=== PATIENT | female | born 1990 | race Caucasian/White ===

== ENCOUNTER → 2016-02-22 | Outpatient (CLI) | payer BC ==
[~2016-02-22] MED LIST: ATEN50TA8 PO; BCPILLS PO; FLUO20CA34 PO; MULT-506 PO; OXYC-57 PO; PRLSR20 PO
[2016-02-22 17:48] LABS: BLOOD UREA NITROGEN 13 mg/dl (7-18); BUN/CREATININE RATIO 13.2 (10-20); CALCIUM 8.7 mg/dl (8.5-10.1); CARBON DIOXIDE 26 mmol/L (21-32); CHLORIDE 105 mmol/L (98-107); GLUCOSE 85 mg/dl (70-99); POTASSIUM 3.9 mmol/L (3.5-5.1); SODIUM 140 mmol/L (136-145)
== END | disposition home or self-care (01) ==
LOC: C.LAB1850 17:12
PROVIDERS: ATTEND Nurse Practitioner
DX: I10 Essential (primary) hypertension (principal)

== ENCOUNTER → 2017-01-19 | Outpatient (CLI) | payer BC ==
[~2017-01-19] MED LIST changes: -OXYC-57 PO
[2017-01-19 14:41] LABS: HEMATOCRIT 38.7 % (37-47); MEAN CELL VOLUME 88.2 fL (80-100); MEAN CORPUSCULAR HEMOGLOBIN 30.3 pg (25-34); MEAN CORPUSCULAR HGB CONC 34.4 g/dl (32-36); MEAN PLATELET VOLUME 10.5 fL (7.4-10.4); PLATELET COUNT 308 K/uL (130-400); RED BLOOD COUNT 4.39 M/uL (4.2-5.4); WHITE BLOOD COUNT 10.77 K/uL (4.8-10.8)
== END | disposition home or self-care (01) ==
LOC: C.LAB1850 12:46
PROVIDERS: ATTEND Obstetrics & Gynecology
DX: R53.83 Other fatigue (principal)

== ENCOUNTER → 2017-01-26 | Outpatient (CLI) | payer BC | END | disposition home or self-care (01) | LOC: C.LAB1850 08:09 | PROVIDERS: ATTEND Nurse Practitioner | DX: E03.9 Hypothyroidism, unspecified (principal) ==

== ENCOUNTER 2018-12-24 17:15 | Inpatient (IN) ==
[~2018-12-24 17:15] MED LIST changes: -ATEN50TA8 PO; -BCPILLS PO; +CEFAZOLIN 2000MG 2,000 MG/15 ML SYR IV SCH; +CITRIC ACID/SODIUM CITRATE 15 ML UDC PO SCH; -FLUO20CA34 PO; -MULT-506 PO; -PRLSR20 PO
[2018-12-24 17:46] LABS: Basophils # (auto) 0.02 K/uL (0-0.2); Basophils % (auto) 0.2 %; Eosinophils # (auto) 0.13 K/uL (0-0.5); Eosinophils % (auto) 1.3 %; Hematocrit (blood only) 36.6 % (37-47); Hemoglobin 13.1 g/dL (12.0-16.0); Immature Granulocytes # (auto) 0.02 K/uL (0.00-0.02); Immature Granulocytes % (auto) 0.2 %; Lymphocytes % (auto) 19.4 %; Mean Corpuscular Hemoglobin 31.7 pg (25-34); Mean Corpuscular Volume 88.6 fL (80-100); Mean Platelet Volume 10.6 fL (7.4-10.4); Monocytes # (auto) 0.89 K/uL (0.11-0.59); Monocytes % (auto) 9.1 %; Neutrophils # (auto) 6.85 K/uL (1.4-6.5); Neutrophils % (auto) 69.8 %; Platelet Count 215 K/uL (130-400); RDW Coefficient of Variation 12.8 % (11.5-14.5); Red Blood Count 4.13 M/uL (4.2-5.4); White Blood Count 9.81 K/uL (4.8-10.8)
[2018-12-24 18:03] LABS: Alanine Aminotransferase 14 U/L (12-78); Albumin Level 2.8 gm/dl (3.4-5.0); Aspartate Aminotransferase 14 U/L (15-37); Bilirubin Direct < 0.1 mg/dl (0-0.2); Est GFR (African American) 133.4; Est GFR (Non-African American) 115.1
[2018-12-24 18:06] LABS: Alkaline Phosphatase 113 U/L (45-117); Bilirubin,Total 0.3 mg/dl (0.2-1); Total Protein 7.3 gm/dl (6.4-8.2)
[2018-12-24 18:07] LABS: Mean Corpuscular Hgb Conc 35.8 g/dL (32-36)
[2018-12-24 18:09] LABS: INR 0.9 (0.9-1.1); Partial Thromboplastin Time 26.9 Seconds (21.0-31.0); Prothrombin Time 9.7 Seconds (9.0-12.0)
[2018-12-24 18:31] LABS: Creatinine Urine Random 17.6 mg/dl; Total Protein Urine Random < 5.0 mg/dl (0-11.9)
[2018-12-24] MEDS ORDERED: LACTATED RINGER'S 1,000 ML IV PRN (18:45)
[2018-12-24] MEDS ORDERED: OXYTOCIN 30 UNITS/500 ML BAG IV PRN (18:45)
--- NOTE | 2018-12-24 18:53 | History & Physical Report ---
Date of Service December 24, 2018 Assessment & Plan (1) Previous delivery affecting , antepartum: (2) Chronic hypertension in obstetric context in third trimester: - heart rate tracing was category 1 -Repeat superimposed preeclamptic labs today within normal limits -Patient with persistent diastolic blood pressures greater than 100 -Discussed the case with maternal- medicine in [place] -Considering the advanced gestational age and the elevated blood pressures, recommend proceeding with delivery. -Patient had been scheduled for repeat section on 31 December -We will proceed with repeat section. -Patient also requesting bilateral tubal ligation -Patient understands that this is an irreversible procedure and wishes to proceed -Permit has been signed -Peds and anesthesia have been notified History of Present Illness Chief Complaint: Elevated blood pressure Primary Care Provider: ALEJANDRA Bernal The patient is a 28-year-old 2 para 1, EDC of 10 January by first trimester ultrasound, at 37+ weeks gestational age, who was admitted with exacerbation of chronic hypertension in . The patient carries a diagnosis of chronic hypertension diagnosed at the time of her last delivery 3 years ago. The patient has been maintained on metoprolol 75 mg twice daily throughout this . She has been followed with chronic hypertensive protocol. She has had reassuring ultrasounds for growth, and testing. Over the last 3 weeks the patient has had an acute rise in her blood pressure with diastolics over 100. Superimposed preeclamptic labs have been within normal limits. Patient was seen in the office today and had persistent diastolic blood pressures greater than 100 and was sent to labor and delivery evaluation. Laboratory values for this show blood type of O+, antibody negative, rubella immune, hepatitis B negative, she had a normal 1 hour Glucola x2, she declined all genetic screening, and she had a negative third trimester beta strep culture. Allergies Allergy/AdvReac Type Severity Reaction Status Date / Time No Known Allergies Allergy Verified 12/24/18 15:40 Home Medications Home Medications Medication Instructions Recorded Confirmed Type cholecalciferol (vitamin D3) 2,000 unit PO DAILY 05/24/18 12/24/18 History [Vitamin D3] levothyroxine 75 mcg tablet 75 mcg PO DAILY #30 tab 08/31/18 12/24/18 History aspirin 81 mg tablet,delayed 81 mg PO DAILY 09/18/18 12/24/18 History release metoprolol tartrate 50 mg tablet 75 mg PO BID tab 10/14/18 12/24/18 History vit-iron fum-folic ac 1 tab PO DAILY 12/11/18 12/24/18 History [ Vitamin] Patient History Medical History Depression (Acute) Essential hypertension (Acute) Laryngopharyngeal reflux (Acute) Subclinical hypothyroidism (Acute) Vitamin D deficiency (Acute) Chronic hypertension in obstetric context in third trimester with 38 completed weeks gestation (Resolved) uterine contractions, antepartum (Resolved) Surgical History History of (Inactive) History of laparoscopic cholecystectomy History of tooth extraction Family History Mother Hyperlipidemia Anxiety Father Hypertension Hyperlipidemia Sister Diabetes Uncle Hyperthyroidism Social History Preferred Language: Korean Communication Ability: Effective Refrigeration Specialist Required: No Beliefs That Will Affect Care: None marital status: Current Living Situation: Spouse current occupational status: employed Other Information That Helps Us Care for You: No Feels Safe at Home: Yes Safety Concerns: Feels Safe At This Time Smoking Status: Never smoker Second Hand Exposure: No ; Hx Alcohol Use: No Hx Substance Use: No Dental Care, Regularly: Yes Physical Activity Frequency: Daily Seatbelt Use: always Sunscreen Use: Yes Physical Exam Constitutional: WD/WN, vitals as above Respiratory: Auscultation: lungs clear to auscultation bilaterally Cardiovascular: RRR, no murmur, no edema Extremities: no calf tenderness Gastrointestinal (Abdomen): Gravid, vertex, positive heart tones, estimated weight of 6-1/2 pounds Genitourinary: Cervical examination deferred Results & Data Vital Signs (Past 12 Hours) Vital Signs Temp Pulse Resp BP 12/24/18 18:39 98.1 F 12/24/18 18:30 77 157/99 H 12/24/18 18:20 68 158/98 H 12/24/18 18:10 76 157/97 H 12/24/18 18:01 77 160/102 H 12/24/18 17:41 77 163/99 H 12/24/18 17:31 81 160/107 H 12/24/18 17:21 78 166/106 H 12/24/18 17:20 98.1 F 20 Code Status & VTE Plan VTE Prophylaxis Plan VTE Prophylaxis will be ordered: Yes
--- NOTE | 2018-12-24 19:02 | Anesthesiology Consultation ---
Date of Service December 24, 2018 Assessment & Plan (1) Encounter for pre-operative examination: Chart Review Chart Review: Acceptable Risk for Surgery and Patient NOT seen in Pre Admission Testing Consults Requested none ASA [id number] Proposed Anesthesia Anesthesia Type: Spinal Risk / Benefits Reviewed With: PT / POA / Parent / Guardian, Accepts Plan and Informed Consent Obtained History Surgery Operation Date: 12/24/18 18:50 Proposed Procedures p Section in LD - Victor M Cottrell Jr, MD, FACOG Height/Weight Height: 5 ft 6 in Weight: 97.427 kg Allergies Allergy/AdvReac Type Severity Reaction Status Date / Time No Known Allergies Allergy Verified 12/24/18 15:40 Medications Home Medications Medication Instructions Recorded Confirmed Last Taken cholecalciferol (vitamin D3) 2,000 unit PO DAILY 05/24/18 12/24/18 12/11/18 06:4 5 [Vitamin D3] levothyroxine 75 mcg tablet 75 mcg PO DAILY #30 tab 08/31/18 12/24/18 12/11/18 06:00 aspirin 81 mg tablet,delayed 81 mg PO DAILY 09/18/18 12/24/18 12/11/18 06:45 release metoprolol tartrate 50 mg tablet 75 mg PO BID tab 10/14/18 12/24/18 12/11/18 06:45 vit-iron fum-folic ac 1 tab PO DAILY 12/11/18 12/24/18 12/10/18 21:00 [ Vitamin] Active Medications Generic Name Dose Route Start Last Admin Trade Name Freq PRN Reason Stop Dose Admin Lactated Ringer's 1,000 mls @ 125 mls/hr 12/24/18 18:45 12/24/18 19:27 Lr IV 12/26/18 18:44 999 mls/hr .Q8H PRN Administration L&D Protocol Protocol NPO Date Last Intake of Fluids: 12/24/18 Time Last Intake of Fluids: 17:00 Date Last Intake of Solids: 12/24/18 Time Last Intake of Solids: 13:15 Past Medical History Medical History Depression (Acute) Essential hypertension (Acute) Laryngopharyngeal reflux (Acute) Subclinical hypothyroidism (Acute) Vitamin D deficiency (Acute) Chronic hypertension in obstetric context in third trimester with 38 completed weeks gestation (Resolved) uterine contractions, antepartum (Resolved) Exercise / Class Metabolic Activity II 4-5 Yardwork/Stairs/Walk up hill Negative for chest pain or shortness of breath. Past Family History Family History Mother Hyperlipidemia Anxiety Father Hypertension Hyperlipidemia Sister Diabetes Uncle Hyperthyroidism Past Surgical History Surgical History History of (Inactive) History of laparoscopic cholecystectomy History of tooth extraction Past Anesthesia History No Hx of Anesthesia Complications History of PONV No Hx of PONV and No Hx of Motion Sickness Social History Smoking Status: Never smoker Hx Alcohol Use: No Hx Substance Use: No substance use type: does not use Review of Systems Patient denies history of abnormal bleeding or bleeding disorder. Patient denies active use of anticoagulants other than low dose aspirin. Patient denies numbness, tingling or weakness in lower extremities. Physical Exam Vital Signs Last Vital Signs Temp 36.9 C 12/24/18 19:05 Pulse 80 12/24/18 19:08 Resp 16 12/24/18 19:05 BP 167/95 H 12/24/18 19:08 Constitutional not obese (Gravid uterus) ENMT Mouth: no TMJ abnormality and oral opening not small Thyromental Distance: > or= 3.5 Finger Breadths Mallampati Class: II Neck normal visual inspection; neck extension not limited Respiratory normal respiratory effort Auscultation: lungs clear to auscultation bilaterally Cardiovascular Rate/Rhythm: regular rate and regular rhythm Heart Sounds: no murmur Neurologic moves all extremities Motor/Sensory: no sensory deficit Psychiatric Orientation: alert and oriented x 3 Testing Laboratory Results 12/24/18 17:29 12/24/18 17: PT 9.7 Seconds (9.0-12.0) 12/24/18 17: INR 0.9 (0.9-1.1) 12/24/18 17: APTT 26.9 Seconds (21.0-31.0) 12/24/18 17:29
[2018-12-24] MEDS ORDERED: MoRPHine SULFATE PF 1 MG/ML 10 ML AMP/VIAL ONE (19:48)
[2018-12-24] MEDS ORDERED: fentaNYL citrate 100 MCG/2 ML VIAL ONE (19:49)
--- NOTE | 2018-12-24 21:02 | Post Operative Brief Note ---
PG Immediate Post Op with CF Date of Surgery December 24, 2018 Pre & Post Diagnosis Operation Date: 12/24/18 18:50 <No data on this case meets the specified criteria> Procedure Operation Date: 12/24/18 18:50 <No data on this case meets the specified criteria> Surgeon Victor M Cottrell Jr, MD, FACOG
[2018-12-24] MEDS ORDERED: SODIUM CHLORIDE 0.9% INJ 10 ML VIAL ONE (21:04)
[2018-12-24] MEDS ORDERED: ONDANSETRON INJ 2 MG/ML 2 ML VIAL ONE (21:04)
[2018-12-24] MEDS ORDERED: OXYTOCIN 10 UNITS/ML VIAL ONE (21:04)
--- NOTE | 2018-12-24 21:08 | Post Operative Brief Note ---
PG Immediate Post Op with CF Date of Surgery December 24, 2018 Pre & Post Diagnosis Operation Date: 12/24/18 18:50 <No data on this case meets the specified criteria> Procedure Operation Date: 12/24/18 18:50 <No data on this case meets the specified criteria> Surgeon Victor M Cottrell Jr, MD, FACOG Specimens Specimen Description: Placenta Exam. R portion fallopian tube. L portion fallopian tube. Cord blood. arterial and venous cord blood gases. Drains Ku Catheter (placed after spinal, draining clear yellow urine.)
[2018-12-24 21:10] LABS: Base Excess Cord Arterial Bld -2.1 mEq/L (-9-1.8); CO2 Cord Arterial Blood 60 mmHg (39.1-73.5); HCO3 Cord Arterial Blood 26 mmol/L (19.7-28.5); PO2 Cord Arterial Blood 11.4 % (4.1-31.7); pH Cord Arterial Blood 7.26 (7.1-7.38)
--- NOTE | 2018-12-24 21:10 | Post Operative Brief Note ---
PG Immediate Post Op with CF Date of Surgery December 24, 2018 Pre & Post Diagnosis Operation Date: 12/24/18 18:50 Pre-Op Diagnosis: 1. complicated 37weeks 2. worsening chronic HTN 3.Previous section 4. Desires Permanent sterilization Post-Op Diagnosis: 1. same 2. Double Footling Breech I identified the patient and participated in the time-out.: Yes Procedure Operation Date: 12/24/18 18:50 1) Repeat lower uterine transverse 2). Bilateral Tubal Ligation Surgeon Victor M Cottrell Jr, MD, FACOG Venue Manager Elda Estimated Blood Loss 800 Findings See Below (viable male, Apgars 3/7/7, weight 5lbs 9 ozs, gasses pending, bilaterla tubal ligation) Specimens Specimen Description: Placenta Exam. R portion fallopian tube. L portion fallopian tube. Cord blood. arterial and venous cord blood gases. Drains Ku Catheter (placed after spinal, draining clear yellow urine.)
[2018-12-24 21:13] LABS: Oxygen Sat Cord Arterial Blood < 60.0 % (<60)
[2018-12-24 21:14] LABS: Base Excess Cord Venous Blood -2.1 mEq/L (-7.7-1.9); Cord Venous Blood HCO3 24 mmol/L (18.4-26.8); Cord Venous Blood PCO2 43 mmHg (30.4-57.2); Cord Venous Blood PO2 27 mmHg (14.1-43.3); Cord Venous Blood pH 7.35 (7.20-7.44); O2 Saturation Cord Venous Bld 62.3 % (<68)
[2018-12-24] MEDS ORDERED: NALBUPHINE HCL INJ 10 MG/ML AMP IV PRN (21:18)
[2018-12-24] MEDS ORDERED: NALOXONE HCL 0.08 MG in SYRINGE 1.8 ML IV PRN (21:18)
[2018-12-24] MEDS ORDERED: DiphenhydrAMINE HCL 50 MG/ML VIAL IV PRN ×2 (21:18→21:25)
[2018-12-24] MEDS ORDERED: ePHEDrine sulfate 50 MG/ML AMP IV PRN (21:18)
[2018-12-24] MEDS ORDERED: NALOXONE HCL 1 MG in SODIUM CHLORIDE 0.9% 1000ML 1,000 ML IV PRN (21:18)
[2018-12-24] MEDS ORDERED: ACETAMINOPHEN 1000 MG/100 ML IV IV PRN (21:18)
[2018-12-24] MEDS ORDERED: ONDANSETRON INJ 2 MG/ML 2 ML VIAL IV PRN (21:18)
[2018-12-24] MEDS ORDERED: NALOXONE HCL 0.4 MG/1 ML VIAL/CARP IV PRN (21:18)
[2018-12-24] MEDS ORDERED: MoRPHine SULFATE PF 1 MG/ML 10 ML AMP/VIAL INT SPINAL ONE (21:18)
[2018-12-24] MEDS ORDERED: LACTATED RINGER'S 500 ML IV PRN (21:18)
[2018-12-24] MEDS ORDERED: HYDROmorphone INJ 0.5 MG/0.5 ML SYR IV PRN (21:18)
[2018-12-24] MEDS ORDERED: BENZOCAINE 20% AER SPR 82.5 GM CAN EXT PRN (21:25)
[2018-12-24] MEDS ORDERED: HYDROCORTISONE ACETATE 25 MG SUPP PR PRN (21:25)
[2018-12-24] MEDS ORDERED: DIPHTHERIA/TETANUS/PERTUSSIS 0.5 ML SYR/VIAL IM ONE (21:25)
[2018-12-24] MEDS ORDERED: SUPERCREAM 0.870% 15 GM JAR EXT PRN (21:25)
[2018-12-24] MEDS ORDERED: LACTATED RINGER'S 1,000 ML IV SCH (21:25)
--- NOTE | 2018-12-24 21:29 | Operative Report ---
DATE OF OPERATION: 12/24/2018 PREOPERATIVE DIAGNOSES: 1. Complicated at 37 weeks gestational age. 2. Worsening chronic hypertension of . 3. Previous section. 4. Desired permanent surgical sterilization. POSTOPERATIVE DIAGNOSES: 1. Same. 2. Double footling breech presentation. PROCEDURES PERFORMED: 1. Repeat low cervical transverse section. 2. Bilateral tubal ligation. SURGEON: Victor M Cottrell MD CROSSCUTTER ROLLED GLASS: Lorene Schroeder MD ANESTHESIA: Spinal. FINDINGS: Viable male with Apgars of 3, 7 and 7 and a weight of 5 pounds 9 ounces, delivered from a double footling breech presentation. Cord gases are pending. Placenta delivered spontaneously. Normal-appearing tubes and ovaries bilaterally. Bilateral segment of fallopian tube removed for sterilization. PROCEDURE IN DETAIL: The patient was taken to the operating room and after spinal anesthesia, was placed in supine position, draped and prepped in the usual fashion. Pfannenstiel type incision through previous surgical scar was made. Underlying subcutaneous tissue was dissected down to the ventral abdominal fascia, which was nicked and opened in a horizontal manner. Preperitoneal fascia was dissected away until the peritoneal cavity was entered and opened in a vertical manner. Bladder blade was placed. Peritoneum overlying the uterus was elevated, opened in a semilunar fashion, the inferior margin of which was taken down creating the bladder flap. The uterus was entered sharply and extended in a semilunar fashion manually for clear fluid. A viable male was delivered from a double footling breech extraction. Cord was clamped and cut and the baby was passed off to pediatrics who was in attendance for the delivery. Cord gases and cord blood samples were obtained. Placenta was delivered spontaneously. The uterus was exteriorized. The uterine cavity was wiped clean of any residual blood tissue and/or clot. The uterine incision was closed with 2 layers of 4-0 Vicryl, the first a running locking stitch, the second an imbricating stitch. Hemostasis was achieved. The right fallopian tube was isolated followed to the fimbriated end, a segment of which was elevated, doubly ligated with 0 plain suture, cut and removed from the field. In a similar fashion, the left fallopian tube was isolated followed to the fimbriated end, a segment of which was elevated, doubly ligated with 0 plain suture, cut and removed from the field. Hemostasis present. The uterus was returned to the pelvic cavity. The pericolic gutters were cleared bilaterally of any blood tissue and/or clot. The pelvis was thoroughly irrigated with 1000 mL of warm saline. All pedicles were inspected for hemostasis, including the tubal pedicles which were present. The sponge and needle count was correct. The rectus muscle was plicated in the midline with a running 2-0 Vicryl stitch. The fascia was closed laterally to the midline from both sides with 0 Vicryl suture. Subcutaneous tissue was irrigated with warm saline and the skin incision was closed with a 4-0 Monocryl subcuticular suture. Sterile dressing was applied. The patient was taken to the recovery room in satisfactory condition. I attest to the content of the Intraoperative Record and any orders documented therein. Any exception s are noted below.
[2018-12-24] MEDS ORDERED: DC INTRASPINAL MORPHINE SCH (21:30)
[2018-12-24] MEDS ORDERED: SODIUM CHLORIDE 0.9% 1000ML 1,000 ML IV SCH (21:30)
[2018-12-24] MEDS ORDERED: NO NARCOTICS OR SEDATIVES SCH (21:30)
[2018-12-24] MEDS ORDERED: KETOROLAC 30 MG/ML VIAL ONE (21:45)
[2018-12-24] MEDS: OXYTOCIN 20 UNITS in LACTATED RINGER'S 1,000 ML IV SCH (21:45)
--- NOTE | 2018-12-24 23:33 | Anesthesiology Progress Note ---
Date of Service December 24, 2018 Anesthesia Post Procedure Vital Signs Vital Signs: Temp Pulse Resp BP Pulse Ox 12/24/18 23:27 77 95 12/24/18 23:22 83 94 12/24/18 23:17 83 95 12/24/18 23:16 81 140/67 12/24/18 23:12 83 94 12/24/18 23:07 85 94 12/24/18 23:02 84 94 12/24/18 22:57 84 94 12/24/18 22:52 85 93 12/24/18 22:47 76 94 12/24/18 22:46 80 123/73 12/24/18 22:45 36.8 C 16 12/24/18 22:42 77 94 12/24/18 22:37 79 94 12/24/18 22:32 81 94 12/24/18 22:27 86 94 12/24/18 22:22 78 95 12/24/18 22:17 75 93 12/24/18 22:15 76 132/65 12/24/18 22:12 76 94 12/24/18 22:07 74 95 12/24/18 22:05 81 16 137/71 12/24/18 22:02 73 95 12/24/18 21:57 75 95 12/24/18 21:55 75 18 133/67 12/24/18 21:52 72 95 12/24/18 21:47 76 94 12/24/18 21:45 79 18 131/62 12/24/18 21:43 83 93 12/24/18 21:42 79 95 12/24/18 21:37 81 98 12/24/18 21:36 78 142/68 H 12/24/18 21:35 18 12/24/18 21:32 71 98 12/24/18 21:27 70 98 12/24/18 21:25 74 18 129/85 12/24/18 21:22 77 99 12/24/18 21:17 75 99 12/24/18 21:15 37.0 C 70 18 127/81 12/24/18 19:08 80 167/95 H 12/24/18 19:05 36.9 C 16 12/24/18 18:39 36.7 C 12/24/18 18:30 77 157/99 H 12/24/18 18:22 68 158/98 H 12/24/18 18:20 68 158/98 H 12/24/18 18:10 76 157/97 H 12/24/18 18:01 77 160/102 H 12/24/18 17:41 77 163/99 H 12/24/18 17:31 81 160/107 H 12/24/18 17:21 78 166/106 H 12/24/18 17:20 36.7 C 20 Pain Intensity Bilateral Lower Abdomen: Pain Intensity: 1 Transfer of Care Handoff Completed per policy Notes Mental Status: alert / awake / arousable and participated in evaluation Nausea / Vomiting: adequately controlled Pain: adequately controlled Airway Patency, RR, SpO2: stable & adequate BP & HR: stable & adequate Hydration State: stable & adequate Neuraxial Anesthesia: was administered and sensory block is resolving Anesthetic Complications: no major complications apparent and Pt Satisfied with anesthetic care
[2018-12-25] MEDS: ACETAMINOPHEN 1000 MG/100 ML IV IV PRN ×2 (01:03→11:22)
[2018-12-25] MEDS: KETOROLAC 30 MG/ML VIAL IV PRN ×2 (06:12→14:29)
--- NOTE | 2018-12-25 06:31 | Obstetrical Progress Note ---
Date of Service <Mike Moraes DO - Last Filed: 12/25/18 06:40> December 25, 2018 Assessment & Plan <Mike Moraes DO - Last Filed: 12/25/18 06:40> (1) Previous delivery affecting , antepartum: -POD#1 -Vitals reviewed, WNL (Tmax 97.0), continue to monitor BP - GBS -, Blood Type O+ - Clinically stable. - Feels well today. Willingham catheter in place. Encourage ambulation. Encourage diet. - Pain well controlled. - Routine post care - After discharge will have [address] Cottrell. Day #:: 1 Subjective <Mike Moraes DO - Last Filed: 12/25/18 06:40> Ambulation: limited ambulation Voiding: willingham catheter in place Passing Gas:: No Diet Tolerance:: clear liquids Lochia:: Small Feeding Type:: bottle feeding ([place]) Current Pain Level(1-10): 2 (improves with analgesics) Patient is a 28 POD#1 for repeat . Patient states that she is doing well this morning and that her pain is well controlled. She has no complaints at this point in time. Constitutional: no fever and no chills Respiratory: no cough, no dyspnea and no wheezing Cardiovascular: no chest pain, no dyspnea, no dyspnea on exertion, no edema and no calf pain Breast: no breast pain Gastrointestinal: no abdominal pain, no nausea and no vomiting Genitourinary (female): no dysuria Neurologic: no headache(s) Physical Exam <DO Michael Baez Last Filed: 12/25/18 06:40> Constitutional WD/WN, vitals as above Respiratory normal respiratory effort, lungs clear to auscultation Cardiovascular Rate/Rhythm: regular rate and regular rhythm Heart Sounds: normal S1 and normal S2; no click, no gallop, no murmur and no car diac rub Extremities: + edema (+1); no calf tenderness Gastrointestinal (Abdomen) Inspection/Auscultation: abdomen normal to inspection, normal bowel sounds and + abdominal surgical incision (Dressing Clean and Dry, No Pus noted. ) Percussion/Palpation: + abdomen tender (TTP in lower quadrants b/l, appropriate) and abdomen soft; no guarding and abdomen not rigid Genitourinary OB Exam Abdomen: + fundal height Fundus: + firm; not tender and not boggy Results & Data <Mike Moraes DO - Last Filed: 12/25/18 06:40> Vital Signs (Past 12 Hours) Vital Signs Temp Pulse Pulse Resp BP BP Pulse Ox 12/25/18 05:50 18 98 12/25/18 04:51 16 98 12/25/18 04:20 36.6 C 71 16 142/82 H 98 12/25/18 03:50 16 98 12/25/18 02:51 36.6 C 67 16 128/83 97 12/25/18 02:06 18 98 12/25/18 02:05 72 18 113/77 97 12/25/18 01:50 18 97 12/25/18 00:50 84 18 126/84 98 12/25/18 00:20 71 18 146/80 H 96 12/24/18 23:50 36.6 C 74 16 137/75 94 12/24/18 23:27 77 95 12/24/18 23:22 83 94 12/24/18 23:17 83 95 12/24/18 23:16 81 140/67 12/24/18 23:12 83 94 12/24/18 23:07 85 94 12/24/18 23:02 84 94 12/24/18 22:57 84 94 12/24/18 22:52 85 93 12/24/18 22:47 76 94 12/24/18 22:46 80 123/73 12/24/18 22:45 36.8 C 16 12/24/18 22:42 77 94 12/24/18 22:37 79 94 12/24/18 22:32 81 94 12/24/18 22:27 86 94 12/24/18 22:22 78 95 12/24/18 22:17 75 93 12/24/18 22:15 36.9 C 76 18 132/65 12/24/18 22:12 76 94 12/24/18 22:07 74 95 12/24/18 22:05 81 16 137/71 12/24/18 22:02 73 95 12/24/18 21:57 75 95 12/24/18 21:55 75 18 133/67 12/24/18 21:52 72 95 12/24/18 21:47 76 94 12/24/18 21:45 79 18 131/62 12/24/18 21:43 83 93 12/24/18 21:42 79 95 12/24/18 21:37 81 98 12/24/18 21:36 78 142/68 H 12/24/18 21:35 18 12/24/18 21:32 71 98 12/24/18 21:27 70 98 12/24/18 21:25 74 18 129/85 12/24/18 21:22 77 99 12/24/18 21:17 75 99 12/24/18 21:15 37.0 C 70 18 127/81 12/24/18 19:08 80 167/95 H 12/24/18 19:05 36.9 C 16 12/24/18 18:39 36.7 C Pulse Ox 12/25/18 05:50 12/25/18 04:51 12/25/18 04:20 12/25/18 03:50 12/25/18 02:51 12/25/18 02:06 12/25/18 02:05 12/25/18 01:50 12/25/18 00:50 12/25/18 00:20 12/24/18 23:50 94 12/24/18 23:27 12/24/18 23:22 12/24/18 23:17 12/24/18 23:16 12/24/18 23:12 12/24/18 23:07 12/24/18 23:02 12/24/18 22:57 12/24/18 22:52 12/24/18 22:47 12/24/18 22:46 12/24/18 22:45 12/24/18 22:42 12/24/18 22:37 12/24/18 22:32 12/24/18 22:27 12/24/18 22:22 12/24/18 22:17 12/24/18 22:15 12/24/18 22:12 12/24/18 22:07 12/24/18 22:05 12/24/18 22:02 12/24/18 21:57 12/24/18 21:55 12/24/18 21:52 12/24/18 21:47 12/24/18 21:45 12/24/18 21:43 12/24/18 21:42 12/24/18 21:37 12/24/18 21:36 12/24/18 21:35 12/24/18 21:32 12/24/18 21:27 12/24/18 21:25 12/24/18 21:22 12/24/18 21:17 12/24/18 21:15 12/24/18 19:08 12/24/18 19:05 12/24/18 18:39 Laboratory Results Abnormal lab results 12/24/18 12/24/18 Range/Units 17:29 17:29 RBC 4.13 L (4.2-5.4) M/uL Hct 36.6 L (37-47) % MPV 10.6 H (7.4-10.4) fL Neut # (Auto) 6.85 H (1.4-6.5) K/uL [place] # (Auto) 0.89 H (0.11-0.59) K/uL AST 14 L (15-37) U/L Albumin 2.8 L (3.4-5.0) gm/dl Medications Administered Current Inpatient Medications Acetaminophen (Ofirmev) 1,000 mg IV Q8 PRN PRN Reason: Pain Stop: 12/25/18 21:18 Last Admin: 12/25/18 01:03 Dose: 1,000 mg Documented by: Benzocaine (Dermoplast Pain Relieving [place]) 1 appln EXT UD PRN PRN Reason: use on skin as needed Stop: 01/23/19 21:24 Cocaine HCl (Supercream 0.870%) 1 gm EXT UD PRN PRN Reason: hemmorrhoidal inflammation Stop: 01/07/19 21:24 Diphenhydramine HCl (Benadryl) 25 mg IV Q6H PRN PRN Reason: pruritis Stop: 12/25/18 15:18 Last Admin: 12/25/18 02:01 Dose: 25 mg Documented by: Diphenhydramine HCl (Benadryl Capsule) 25 mg PO QID PRN PRN Reason: Itching Stop: 01/24/19 15:17 Diphenhydramine HCl (Benadryl) 25 mg IV QID PRN PRN Reason: Itching Stop: 01/24/19 15:17 Ephedrine Sulfate (Ephedrine Sulfate) 10 mg IV Q5M PRN PRN Reason: Hypotension Stop: 12/25/18 15:18 Ferrous Sulfate (Feosol) 325 mg PO DAILY@08 [facility] Stop: 01/24/19 07:59 Hydrocortisone (Anusol Hc) 25 mg [place] BID PRN PRN Reason: Hemorrhoids Stop: 01/23/19 21:24 Hydromorphone HCl (Dilaudid) 0.25 mg IV Q4H PRN PRN Reason: Breakthrough Surgical Pain Stop: 12/25/18 15:18 Lactated Ringer's (Lr) 500 mls @ 999 mls/hr IV .Q31M PRN PRN Reason: Hypotension Stop: 12/25/18 15:18 Naloxone HCl 0.08 mg/ Syringe 2 mls @ 1 mls/min IV Q30M PRN; Protocol PRN Reason: Urinary Retention Stop: 12/25/18 15:18 Naloxone HCl 1 mg/ Sodium (Chloride) 1,002.5 mls @ 50 mls/hr IV .Q20H3M PRN PRN Reason: itching or nausea Stop: 12/25/18 15:18 Sodium Chloride (Nss 1000ml) 1,000 mls @ 15 mls/hr IV .Q24H [facility] Stop: 12/25/18 15:18 Lactated Ringer's (Lr) 1,000 mls @ 125 mls/hr IV .Q8H [facility] Stop: 01/23/19 21:24 Oxytocin 20 units/ Lactated (Ringer's) 1,002 mls @ 125 mls/hr IV .Q8H1M [facility] Stop: 12/25/18 13:26 Last Admin: 12/25/18 06:32 Dose: 125 mls/hr Documented by: Ibuprofen (Motrin) 600 mg PO Q4H PRN PRN Reason: Pain Stop: 01/23/19 21:24 Ketorolac Tromethamine (Toradol) 30 mg IV Q6H PRN PRN Reason: Breakthrough Surgical Pain Stop: 12/25/18 15:18 Last Admin: 12/25/18 06:12 Dose: 30 mg Documented by: Ketorolac Tromethamine (Toradol) 30 mg IV Q6H PRN PRN Reason: Pain Stop: 12/29/18 15:17 Levothyroxine Sodium (Synthroid) 75 mcg PO DAILYBB [facility] Stop: 01/24/19 06:29 Magnesium Hydroxide (Milk Of Magnesia) 30 ml PO HS [facility] Stop: 01/24/19 20:59 Metoprolol Tartrate (Lopressor) 75 mg PO BID [facility] Stop: 01/24/19 08:59 Miscellaneous (No Narcotics Or Sedatives) 1 ea N/A UD [facility] Stop: 12/25/18 15:18 Miscellaneous Information (Dc Intraspinal Morphine) 1 ea N/A UD [facility] Stop: 12/25/18 15:18 Nalbuphine HCl (Nubain) 5 mg IV Q10M PRN PRN Reason: itching or nausea Stop: 12/25/18 15:18 Naloxone HCl (Narcan) 0.1 mg IV UD PRN PRN Reason: Respiratory Depression Stop: 12/25/18 15:18 Ondansetron HCl (Zofran) 4 mg IV Q6H PRN PRN Reason: Nausea And Vomiting Stop: 12/25/18 15:18 Ondansetron HCl (Zofran) 4 mg IV Q4H PRN PRN Reason: Nausea And Vomiting Stop: 01/24/19 15:17 Oxycodone/Acetaminophen (Percocet 5mg/325mg) 1 - 2 tab PO Q4H PRN PRN Reason: Pain Stop: 01/08/19 15:17 Prenat Multivit/[place]/Iron/Folic Ac ( Vitamin) 1 tab PO DAILY@08 [facility] Stop: 01/24/19 07:59 Sennosides (Senokot) 17.2 mg PO HS [facility] Stop: 01/24/19 20:59 Simethicone (Mylicon) 80 mg PO DAILY@08,13,17,21 [facility] Stop: 01/24/19 07:59 <Victor M Cottrell Jr, MD, FACOG - Last Filed: 12/25/18 07:42> Co-Signing Physician Notes Resident Physician Supervision Note: I was present with Dr. Moraes during the history and exam. I discussed the case with the resident and agree with the findings and plan as documented in the note. Any exceptions or clarifications are listed here: Discussed surgery and findings with patient. BP stable on medication. Documented By: Victor M Cottrell Jr, MD, FACOG Resident Activity Tracking <Mike Moraes DO - Last Filed: 12/25/18 06:40> Resident Involvement: Resident Care Provided Care Provided: OB Delivery
[2018-12-25] MEDS: OXYTOCIN 20 UNITS in LACTATED RINGER'S 1,000 ML IV SCH (06:32)
[2018-12-25 06:36] LABS: Basophils # (auto) 0.02 K/uL (0-0.2); Basophils % (auto) 0.2 %; Eosinophils # (auto) 0.06 K/uL (0-0.5); Eosinophils % (auto) 0.5 %; Hematocrit (blood only) 32.6 % (37-47); Hemoglobin 11.3 g/dL (12.0-16.0); Immature Granulocytes # (auto) 0.03 K/uL (0.00-0.02); Immature Granulocytes % (auto) 0.3 %; Lymphocytes # (auto) 1.56 K/uL (1.2-3.4); Lymphocytes % (auto) 14.3 %; Mean Corpuscular Hgb Conc 34.7 g/dL (32-36); Mean Corpuscular Volume 89.3 fL (80-100); Mean Platelet Volume 10.6 fL (7.4-10.4); Monocytes # (auto) 0.85 K/uL (0.11-0.59); Monocytes % (auto) 7.8 %; Neutrophils # (auto) 8.41 K/uL (1.4-6.5); Neutrophils % (auto) 76.9 %; Platelet Count 171 K/uL (130-400); RDW Coefficient of Variation 12.9 % (11.5-14.5); RDW Standard Deviation 41.5 fL (36.4-46.3); Red Blood Count 3.65 M/uL (4.2-5.4); White Blood Count 10.93 K/uL (4.8-10.8)
[2018-12-25] MEDS: LEVOTHYROXINE SODIUM 75 MCG TABLET PO SCH (07:08)
[2018-12-25] MEDS: SIMETHICONE 80 MG CHEW PO SCH ×4 (09:41→21:31)
[2018-12-25] MEDS: FERROUS SULFATE 325 MG TAB PO SCH (09:41)
[2018-12-25] MEDS: METOPROLOL TARTRATE 50 MG TAB PO SCH ×2 (09:41→21:27)
[2018-12-25] MEDS: PRENATAL VITAMIN 1 TAB PO SCH (09:41)
--- NOTE | 2018-12-25 11:34 | Anesthesiology Progress Note ---
Date of Service December 25, 2018 Anesthesia Post Procedure Vital Signs Vital Signs: Temp Pulse Pulse Pulse Resp BP BP 12/25/18 10:00 18 12/25/18 09:45 133/85 12/25/18 09:00 18 12/25/18 08:00 36.5 C 79 16 151/99 H 12/25/18 06:49 18 12/25/18 05:50 18 12/25/18 04:51 16 12/25/18 04:20 36.6 C 71 16 142/82 H 12/25/18 03:50 16 12/25/18 02:51 36.6 C 67 16 128/83 12/25/18 02:06 18 12/25/18 02:05 72 18 113/77 12/25/18 01:50 18 12/25/18 00:50 84 18 126/84 12/25/18 00:20 71 18 146/80 H 12/24/18 23:50 36.6 C 74 16 137/75 12/24/18 23:27 77 12/24/18 23:22 83 12/24/18 23:17 83 12/24/18 23:16 81 140/67 12/24/18 23:12 83 12/24/18 23:07 85 12/24/18 23:02 84 12/24/18 22:57 84 12/24/18 22:52 85 12/24/18 22:47 76 12/24/18 22:46 80 123/73 12/24/18 22:45 36.8 C 16 12/24/18 22:42 77 12/24/18 22:37 79 12/24/18 22:32 81 12/24/18 22:27 86 12/24/18 22:22 78 12/24/18 22:17 75 12/24/18 22:15 36.9 C 76 18 132/65 12/24/18 22:12 76 12/24/18 22:07 74 12/24/18 22:05 81 16 137/71 12/24/18 22:02 73 12/24/18 21:57 75 12/24/18 21:55 75 18 133/67 12/24/18 21:52 72 12/24/18 21:47 76 12/24/18 21:45 79 18 131/62 12/24/18 21:43 83 12/24/18 21:42 79 12/24/18 21:37 81 12/24/18 21:36 78 142/68 H 12/24/18 21:35 18 12/24/18 21:32 71 12/24/18 21:27 70 12/24/18 21:25 74 18 129/85 12/24/18 21:22 77 12/24/18 21:17 75 12/24/18 21:15 37.0 C 70 18 127/81 12/24/18 19:08 80 167/95 H 12/24/18 19:05 36.9 C 16 12/24/18 18:39 36.7 C 12/24/18 18:30 77 157/99 H 12/24/18 18:22 68 158/98 H 12/24/18 18:20 68 158/98 H 12/24/18 18:10 76 157/97 H 12/24/18 18:01 77 160/102 H 12/24/18 17:41 77 163/99 H 12/24/18 17:31 81 160/107 H 12/24/18 17:21 78 166/106 H 12/24/18 17:20 36.7 C 20 Pulse Ox Pulse Ox 12/25/18 10:00 100 12/25/18 09:45 12/25/18 09:00 100 12/25/18 08:00 100 12/25/18 06:49 98 12/25/18 05:50 98 12/25/18 04:51 98 12/25/18 04:20 98 12/25/18 03:50 98 12/25/18 02:51 97 12/25/18 02:06 98 12/25/18 02:05 97 12/25/18 01:50 97 12/25/18 00:50 98 12/25/18 00:20 96 12/24/18 23:50 94 94 12/24/18 23:27 95 12/24/18 23:22 94 12/24/18 23:17 95 12/24/18 23:16 12/24/18 23:12 94 12/24/18 23:07 94 12/24/18 23:02 94 12/24/18 22:57 94 12/24/18 22:52 93 12/24/18 22:47 94 12/24/18 22:46 12/24/18 22:45 12/24/18 22:42 94 12/24/18 22:37 94 12/24/18 22:32 94 12/24/18 22:27 94 12/24/18 22:22 95 12/24/18 22:17 93 12/24/18 22:15 12/24/18 22:12 94 12/24/18 22:07 95 12/24/18 22:05 12/24/18 22:02 95 12/24/18 21:57 95 12/24/18 21:55 12/24/18 21:52 95 12/24/18 21:47 94 12/24/18 21:45 12/24/18 21:43 93 12/24/18 21:42 95 12/24/18 21:37 98 12/24/18 21:36 12/24/18 21:35 12/24/18 21:32 98 12/24/18 21:27 98 12/24/18 21:25 12/24/18 21:22 99 12/24/18 21:17 99 12/24/18 21:15 12/24/18 19:08 12/24/18 19:05 12/24/18 18:39 12/24/18 18:30 12/24/18 18:22 12/24/18 18:20 12/24/18 18:10 12/24/18 18:01 12/24/18 17:41 12/24/18 17:31 12/24/18 17:21 12/24/18 17:20 Pain Intensity Bilateral Lower Abdomen: Pain Intensity: 1 Transfer of Care Handoff Completed per policy Notes Mental Status: alert / awake / arousable and participated in evaluation Patient Amnestic to Procedure: Yes Nausea / Vomiting: adequately controlled Pain: adequately controlled Airway Patency, RR, SpO2: stable & adequate BP & HR: stable & adequate Hydration State: stable & adequate Anesthetic Complications: no major complications apparent and Pt Satisfied with anesthetic care
[2018-12-25] MEDS ORDERED: KETOROLAC 30 MG/ML VIAL IV PRN (15:18)
[2018-12-25] MEDS ORDERED: DiphenhydrAMINE HCL 50 MG/ML VIAL IV PRN (15:18)
[2018-12-25] MEDS ORDERED: ONDANSETRON INJ 2 MG/ML 2 ML VIAL IV PRN (15:18)
[2018-12-25] MEDS: IBUPROFEN 600 MG TAB PO PRN (21:24)
[2018-12-25] MEDS: SENNA 8.6 MG TAB PO SCH (21:30)
[2018-12-25] MEDS: MAGNESIUM HYDROXIDE SUSP 30 ML UDC PO SCH (21:31)
[2018-12-26] MEDS: OXYCODONE/ACETAMINOPHEN 5mg/325mg TAB PO PRN ×5 (00:07→23:20)
[2018-12-26] MEDS: LEVOTHYROXINE SODIUM 75 MCG TABLET PO SCH (06:03)
--- NOTE | 2018-12-26 06:41 | Obstetrical Progress Note ---
Date of Service <Mike Moraes DO - Last Filed: 12/26/18 06:41> December 26, 2018 Assessment & Plan <Mike Moraes DO - Last Filed: 12/26/18 06:41> (1) Previous delivery affecting , antepartum: -POD#2 -Vitals reviewed, WNL (Tmax 36.9), continue to monitor BP - GBS -, Blood Type O+ - Clinically stable. - Feels well today. Voiding appropriately. Encourage ambulation. Encourage diet. - Pain well controlled. - Routine post care - After discharge will have [address] Cottrell. Day #:: 2 Subjective <Mike Moraes DO - Last Filed: 12/26/18 06:41> Ambulation: ambulating normally Voiding: no voiding problems Passing Gas:: Yes Diet Tolerance:: regular diet Lochia:: Small Feeding Type:: bottle feeding Current Pain Level(1-10): 2 (improves with analgesics) Patient is a 28 POD#2. Patient states that she is doing well this morning and that her pain is well controlled. She has no complaints at this point in time. Constitutional: no fever and no chills Respiratory: no cough, no dyspnea and no wheezing Cardiovascular: no chest pain, no dyspnea, no dyspnea on exertion, no edema and no calf pain Breast: no breast pain Gastrointestinal: + abdominal pain; no nausea and no vomiting Genitourinary (female): no dysuria Neurologic: no headache(s) Physical Exam <Mike Moraes DO - Last Filed: 12/26/18 06:41> Constitutional WD/WN, vitals as above Respiratory normal respiratory effort, lungs clear to auscultation Cardiovascular Rate/Rhythm: regular rate and regular rhythm Heart Sounds: normal S1 and normal S2; no click, no gallop, no murmur and no cardiac rub Extremities: + edema (+1); no calf tenderness Gastrointestinal (Abdomen) Inspection/Auscultation: abdomen normal to inspection, normal bowel sounds and + abdominal surgical incision (Clean and Dry, No Pus noted. ) Percussion/Palpation: + abdomen tender (TTP in lower quadrants b/l, appropriate) and abdomen soft; no guarding and abdomen not rigid Genitourinary OB Exam Abdomen: + fundal height Fundus: + firm and + relation to umbilicus (1.5cm below ); not tender and not boggy Results & Data <Mike Moraes, - Last Filed: 12/26/18 06:41> Vital Signs (Past 12 Hours) Vital Signs Temp Pulse Resp BP Pulse Ox 12/25/18 23:55 36.9 C 89 17 127/85 97 12/25/18 20:30 36.7 C 85 18 133/82 100 Medications Administered Current Inpatient Medications Benzocaine (Dermoplast Pain Relieving [place]) 1 appln EXT UD PRN PRN Reason: use on skin as needed Stop: 01/23/19 21:24 Cocaine HCl (Supercream 0.870%) 1 gm EXT UD PRN PRN Reason: hemmorrhoidal inflammation Stop: 01/07/19 21:24 Diphenhydramine HCl (Benadryl Capsule) 25 mg PO QID PRN PRN Reason: Itching Stop: 01/24/19 15:17 Diphenhydramine HCl (Benadryl) 25 mg IV QID PRN PRN Reason: Itching Stop: 01/24/19 15:17 Ferrous Sulfate (Feosol) 325 mg PO DAILY@08 [facility] Stop: 01/24/19 07:59 Last Admin: 12/25/18 09:41 Dose: 325 mg Documented by: Hydrocortisone (Anusol Hc) 25 mg [place] BID PRN PRN Reason: Hemorrhoids Stop: 01/23/19 21:24 Lactated Ringer's (Lr) 1,000 mls @ 125 mls/hr IV .Q8H [facility] Stop: 01/23/19 21:24 Ibuprofen (Motrin) 600 mg PO Q4H PRN PRN Reason: Pain Stop: 01/23/19 21:24 Last Admin: 12/25/18 21:24 Dose: 600 mg Documented by: Ketorolac Tromethamine (Toradol) 30 mg IV Q6H PRN PRN Reason: Pain Stop: 12/29/18 15:17 Levothyroxine Sodium (Synthroid) 75 mcg PO DAILYBB [facility] Stop: 01/24/19 06:29 Last Admin: 12/26/18 06:03 Dose: 75 mcg Documented by: Magnesium Hydroxide (Milk Of Magnesia) 30 ml PO HS [facility] Stop: 01/24/19 20:59 Last Admin: 12/25/18 21:31 Dose: 30 ml Documented by: Metoprolol Tartrate (Lopressor) 75 mg PO BID [place] Stop: 01/24/19 08:59 Last Admin: 12/25/18 21:27 Dose: 75 mg Documented by: Ondansetron HCl (Zofran) 4 mg IV Q4H PRN PRN Reason: Nausea And Vomiting Stop: 01/24/19 15:17 Oxycodone/Acetaminophen (Percocet 5mg/325mg) 1 - 2 tab PO Q4H PRN PRN Reason: Pain Stop: 01/08/19 15:17 Last Admin: 12/26/18 00:07 Dose: 1 tab Documented by: Prenat Multivit/[place]/Iron/Folic Ac ( Vitamin) 1 tab PO DAILY@08 [facility] Stop: 01/24/19 07:59 Last Admin: 12/25/18 09:41 Dose: 1 tab Documented by: Sennosides (Senokot) 17.2 mg PO HS [facility] Stop: 01/24/19 20:59 Last Admin: 12/25/18 21:30 Dose: 17.2 mg Documented by: Simethicone (Mylicon) 80 mg PO DAILY@08,13,17,21 [facility] Stop: 01/24/19 07:59 Last Admin: 12/25/18 21:31 Dose: 80 mg Documented by: <Lorene Carter MD, FACOG - Last Filed: 12/26/18 07:31> Co-Signing Physician Notes Resident Physician Supervision Note: I was present with Dr. Moraes during the history and exam. I discussed the case with the resident and agree with the findings and plan as documented in the note. Any exceptions or clarifications are listed here: [None] Documented By: Lorene Carter MD, FACOG Resident Activity Tracking <Mike Moraes DO - Last Filed: 12/26/18 06:41> Resident Involvement: Resident Care Provided Care Provided: OB Delivery
[2018-12-26] MEDS: IBUPROFEN 600 MG TAB PO PRN ×3 (06:52→20:42)
[2018-12-26 07:17] LABS: Hematocrit (blood only) 32.6 % (37-47); Hemoglobin 11.2 g/dL (12.0-16.0)
[2018-12-26] MEDS: PRENATAL VITAMIN 1 TAB PO SCH (08:17)
[2018-12-26] MEDS: FERROUS SULFATE 325 MG TAB PO SCH (08:17)
[2018-12-26] MEDS: SIMETHICONE 80 MG CHEW PO SCH ×4 (08:17→20:42)
[2018-12-26] MEDS: METOPROLOL TARTRATE 50 MG TAB PO SCH ×2 (08:18→20:41)
[2018-12-26] MEDS: SENNA 8.6 MG TAB PO SCH (20:42)
[2018-12-26] MEDS: MAGNESIUM HYDROXIDE SUSP 30 ML UDC PO SCH (20:58)
[2018-12-27] MEDS: LEVOTHYROXINE SODIUM 75 MCG TABLET PO SCH (06:25)
--- NOTE | 2018-12-27 06:35 | Obstetrical Progress Note ---
Date of Service <Mike Moraes DO - Last Filed: 12/27/18 06:35> December 27, 2018 Assessment & Plan <Mike Moraes DO - Last Filed: 12/27/18 06:35> (1) Previous delivery affecting , antepartum: -POD#3 -Vitals reviewed, WNL (Tmax 37.2), BP max 147/88 overnight, no complaints of AVERY, RUQ pain. - GBS -, Blood Type O+ - Clinically stable. - Feels well today. Voiding appropriately. Encourage ambulation. Encourage diet. - Pain well controlled. - Routine post care - After discharge will have [address] Cottrell. Day #:: 3 Subjective <Mike Moraes DO - Last Filed: 12/27/18 06:35> Ambulation: ambulating normally Voiding: no voiding problems Passing Gas:: Yes Diet Tolerance:: regular diet Lochia:: Small Feeding Type:: bottle feeding (blue) Current Pain Level(1-10): 0 Patient is a 28 POD#3. Patient states that she is doing well this morning and that her pain is well controlled. She has no complaints at this point in time. States she is looking forward to discharge today. Constitutional: no fever and no chills Respiratory: no cough, no dyspnea and no wheezing Cardiovascular: no chest pain, no dyspnea, no dyspnea on exertion, no edema and no calf pain Breast: no breast pain Gastrointestinal: + abdominal pain (appropriate); no nausea and no vomiting Genitourinary (female): no dysuria Neurologic: no headache(s) Physical Exam <DO Michael Baez Last Filed: 12/27/18 06:35> Constitutional WD/WN, vitals as above Respiratory normal respiratory effort, lungs clear to auscultation Cardiovascular Rate/Rhythm: regular rate and regular rhythm Heart Sounds: normal S1 and normal S2; no click, no gallop, no murmur and no cardiac rub Extremities: + edema (+1); no calf tenderness Gastrointestinal (Abdomen) Inspection/Auscultation: abdomen normal to inspection, normal bowel sounds and + abdominal surgical incision (Clean and Dry, No Pus noted. ) Percussion/Palpation: + abdomen tender (TTP in lower quadrants b/l, appropriate) and abdomen soft; no guarding and abdomen not rigid Genitourinary OB Exam Abdomen: + fundal height Fundus: + firm and + relation to umbilicus (1 cm below ); not tender and not boggy Results & Data <Mike Moraes DO - Last Filed: 12/27/18 06:35> Vital Signs (Past 12 Hours) Vital Signs Temp Pulse Resp BP Pulse Ox 12/26/18 23:10 37.2 C 86 18 132/87 96 12/26/18 19:40 36.5 C 87 18 147/88 H 99 Laboratory Results Abnormal lab results 12/26/18 Range/Units 06:23 Hgb 11.2 L (12.0-16.0) g/dL Hct 32.6 L (37-47) % Medications Administered Current Inpatient Medications Benzocaine (Dermoplast Pain Relieving [place]) 1 appln EXT UD PRN PRN Reason: use on skin as needed Stop: 01/23/19 21:24 Cocaine HCl (Supercream 0.870%) 1 gm EXT UD PRN PRN Reason: hemmorrhoidal inflammation Stop: 01/07/19 21:24 Diphenhydramine HCl (Benadryl Capsule) 25 mg PO QID PRN PRN Reason: Itching Stop: 01/24/19 15:17 Diphenhydramine HCl (Benadryl) 25 mg IV QID PRN PRN Reason: Itching Stop: 01/24/19 15:17 Ferrous Sulfate (Feosol) 325 mg PO DAILY@08 [facility] Stop: 01/24/19 07:59 Last Admin: 12/26/18 08:17 Dose: 325 mg Documented by: Hydrocortisone (Anusol Hc) 25 mg [place] BID PRN PRN Reason: Hemorrhoids Stop: 01/23/19 21:24 Lactated Ringer's (Lr) 1,000 mls @ 125 mls/hr IV .Q8H [facility] Stop: 01/23/19 21:24 Ibuprofen (Motrin) 600 mg PO Q4H PRN PRN Reason: Pain Stop: 01/23/19 21:24 Last Admin: 12/26/18 20:42 Dose: 600 mg Documented by: Ketorolac Tromethamine (Toradol) 30 mg IV Q6H PRN PRN Reason: Pain Stop: 12/29/18 15:17 Levothyroxine Sodium (Synthroid) 75 mcg PO DAILYBB [facility] Stop: 01/24/19 06:29 Last Admin: 12/27/18 06:25 Dose: 75 mcg Documented by: Magnesium Hydroxide (Milk Of Magnesia) 30 ml PO HS [facility] Stop: 01/24/19 20:59 Last Admin: 12/26/18 20:58 Dose: Not Given Documented by: Metoprolol Tartrate (Lopressor) 75 mg PO BID [facility] Stop: 01/24/19 08:59 Last Admin: 12/26/18 20:41 Dose: 75 mg Documented by: Ondansetron HCl (Zofran) 4 mg IV Q4H PRN PRN Reason: Nausea And Vomiting Stop: 01/24/19 15:17 Oxycodone/Acetaminophen (Percocet 5mg/325mg) 1 - 2 tab PO Q4H PRN PRN Reason: Pain Stop: 01/08/19 15:17 Last Admin: 12/26/18 23:20 Dose: 1 tab Documented by: Prenat Multivit/[place]/Iron/Folic Ac ( Vitamin) 1 tab PO DAILY@08 [facility] Stop: 01/24/19 07:59 Last Admin: 12/26/18 08:17 Dose: 1 tab Documented by: Sennosides (Senokot) 17.2 mg PO HS [facility] Stop: 01/24/19 20:59 Last Admin: 12/26/18 20:42 Dose: 17.2 mg Documented by: Simethicone (Mylicon) 80 mg PO DAILY@08,13,17,21 [facility] Stop: 01/24/19 07:59 Last Admin: 12/26/18 20:42 Dose: 80 mg Documented by: <Raegan Calhoun MD, FACOG - Last Filed: 12/27/18 07:11> Co-Signing Physician Notes Resident Physician Supervision Note: I was present with Dr. Moraes during the history and exam. I discussed the case with the resident and agree with the findings and plan as documented in the note. Any exceptions or clarifications are listed here: [None] Documented By: Raegan Calhoun MD, FACOG Resident Activity Tracking <Mike Moraes DO - Last Filed: 12/27/18 06:35> Resident Involvement: Resident Care Provided Care Provided: OB Delivery
--- NOTE | 2018-12-27 07:36 | Discharge Summary ---
Date of Service December 27, 2018 Admission HPI Per Admitting Provider The patient is a 28-year-old 2 para 1, EDC of 10 January by first trimester ultrasound, at 37+ weeks gestational age, who was admitted with exacerbation of chronic hypertension in . The patient carries a diagnosis of chronic hypertension diagnosed at the time of her last delivery 3 years ago. The patient has been maintained on metoprolol 75 mg twice daily throughout this . She has been followed with chronic hypertensive protocol. She has had reassuring ultrasounds for growth, and testing. Over the last 3 weeks the patient has had an acute rise in her blood pressure with diastolics over 100. Superimposed preeclamptic labs have been within normal limits. Patient was seen in the office today and had persistent diastolic blood pressures greater than 100 and was sent to labor and delivery evaluation. Laboratory values for this show blood type of O+, antibody negative, rubella immune, hepatitis B negative, she had a normal 1 hour Glucola x2, she declined all genetic screening, and she had a negative third trimester beta strep culture. Admission Exam (Per Admitting) Constitutional WD/WN, vitals as above Respiratory Auscultation: lungs clear to auscultation bilaterally Cardiovascular RRR, no murmur, no edema Extremities: no calf tenderness Gastrointestinal (Abdomen) Gravid, Breech, (+)FHT's Genitourinary OB Exam Monitor Tracing: + category I and + normal FHT variability Cx: deferred Discharge Data Consultations 12/24/18 18:45 Consult Anesthesiology Stat Procedures Performed Operation Date: 12/24/18 18:50 Actual Procedures p Repeat Lower uterine transverse section. Live male child@ 2027 - Victor M Cottrell Jr, [place], [facility] [place] Post Tubal Ligation Labor & Deliv - Victor M Cottrell Jr, MD, [facility] [place] Hospital Course (1) Chronic hypertension in obstetric context in third trimester: (2) Previous delivery affecting , antepartum: The patient had been maintained on her blood pressure medication until the 3rd trimester when diastolics began elevated. PIH labs were within normal limits, but with worsening diastolic blood pressure a decision was made to proceed with repeat low cervical transverse section. Patient also requested permanent surgical sterilization and had been counseled on the irreversible nature of the procedure. The patient was taken to the operating room where she underwent the above-listed procedures. Operative findings Viable male with Apgars of 3, 7 and 7 and a weight of 5 pounds 9 ounces, delivered from a double footling breech presentation. Cord Placenta delivered spontaneously. Normal-appearing tubes and ovaries bilaterally. Bilateral segment of fallopian tube removed for sterilization. Postoperatively the patient did well. Her Ku catheter was removed on the 1st postoperative day and her H&H was stable. The patient's blood pressures decreased appropriately but she remained on her hypertensive medication. The patient was discharged home on the 3rd postoperative day with prescriptions for her pain medications. She will continue on her beta claudette. The patient will follow up in the office for a postoperative check, but is always she has been instructed to call with any questions problems or difficulties.
[2018-12-27] MEDS: FERROUS SULFATE 325 MG TAB PO SCH (07:46)
[2018-12-27] MEDS: IBUPROFEN 600 MG TAB PO PRN (07:46)
[2018-12-27] MEDS: PRENATAL VITAMIN 1 TAB PO SCH (07:46)
[2018-12-27] MEDS: SIMETHICONE 80 MG CHEW PO SCH ×2 (07:46→12:03)
[2018-12-27] MEDS: METOPROLOL TARTRATE 50 MG TAB PO SCH (07:47)
[2018-12-27] MEDS: OXYCODONE/ACETAMINOPHEN 5mg/325mg TAB PO PRN (12:02)
== END 2018-12-27 12:26 | disposition home or self-care (01) | DRG 785 ==
LOC: OPB 17:15 → 4S1 17:16 → 4S2 23:50
PROC: M.PPTLD (2018-12-24 18:50)